=== PATIENT | male | born 1940 | race Caucasian/White ===

== ENCOUNTER → 2018-07-10 | Outpatient (REF) | payer MEDICARE ==
[~2018-07-10] MED LIST: ALFALFA650 MG OR; AMLODIPINE5 MG OR; AMLODIPINE5 MG PO; ASMANEX 120220 MCG IN; ASMANEX 30220 MCG; ASMANEX 30220 MCG IN; ASMANEX 30220 MCG PO; AUGMENTIN875TAB PO; BABY ASPIRIN81 MG PO; CIPROFLOXACN500 MG PO; CORTISPORIN OTI10 M2 AD; DILT-XR180 MG PO; DILTIAZEM120 M1 OR; DILTIAZEM180 M1 OR; DILTIAZEM180 M1 PO; DILTIAZEM240 M1 PO; DIOVAN160 MG OR; DIOVAN160 MG PO; DIOVAN320 MG PO; E400400 UNIT OR; FERROUS SULF325 M3 PO; FISH OIL1000 MG OR; FISH OIL1000 MG PO; FUROSEMIDE20 MG OR; HYDROCHLOROT25 MG OR; LESCOL XL80 MG OR; LEVAQUIN500 MG OR; LOVASTATIN20 M1 PO; MELOXICAM15 MG PO; MSM/GLUCOSA1 OR; NEXIUM40 M1 OR; NEXIUM40 M1 PO; PNEUMOVAX 23 IM; TENORMIN25 MG PO; TESSALON PER100 MG PO; TESSALON200 MG PO; ULTRAM50 M1 PO; VICOPROFEN OR; VITAMIN C500 M3 OR
[2018-07-10 08:39] LABS: HEMATOCRIT 44.3 % (39.0-50.0); HEMOGLOBIN 15.3 g/dl (14.0-18.0); MEAN CELL VOLUME 89.1 fL CALC (80.0-100.0); MEAN CORPUSCULAR HGB 30.8 pG CALC (26.0-32.0); MEAN CORPUSCULAR HGB CONC 34.5 g/L CALC (32.0-36.0); RED BLOOD COUNT 4.97 mill/uL (4.70-6.10); RED CELL DISTRI WIDTH 12.6 % (11.5-15.5)
[2018-07-10 08:56] LABS: ALKALINE PHOSPHATASE 56 u/l (38-126); ANION GAP 12 (6-22 (CALC)); BILIRUBIN, TOTAL 0.7 mg/dL (0.0-1.4); BUN 20 mg/dL (8-23); BUN/CREATININE RATIO 20 (12-20 (CALC)); CALCULATED LDLCHOLESTEROL 72 mg/dL (62-129 (CALC)); CARBON DIOXIDE 33 mmol/l (22-30); CHLORIDE 99 mmol/l (95-108); CHOLESTEROL HDL RATIO 3.7 (<4.4 (CALC)); GFR > 60 ML/MIN (>=60 (CALC)); GFR FOR AFR.AMER. > 60 ML/MIN (>=60 (CALC)); HDL CHOLESTEROL 42 mg/dL (>=40); POTASSIUM 3.4 mmol/l (3.5-5.1); SGOT/AST 21 u/l (19-48); SODIUM 140 mmol/l (137-146); TOTAL CHOLESTEROL 158 mg/dl (0-199); TOTAL PROTEIN 6.5 g/dL (6.3-8.2); TOTAL TRIGLYCERIDES 219 mg/dl (30-149); VLDL CHOLESTROL 44 mg/dl (0-38 (CALC))
== END | disposition home or self-care (01) ==
LOC: LAB 07:57
PROVIDERS: ATTEND Internal Medicine
DX: E78.5 Hyperlipidemia, unspecified (principal); I10 Essential (primary) hypertension; I49.9 Cardiac arrhythmia, unspecified